=== PATIENT | male | born 1960 | race Caucasian/White ===

== ENCOUNTER 2016-09-01 15:58 | Emergency (ER) | payer OTHER ==
[~2016-09-01] VITALS: Ht 185.4 cm; Wt 122.4 kg
[2016-09-01 18:06] LABS: HEMATOCRIT 39.6 % (38.0-50.0); MCH 30.6 PG (29.0-34.0); MCHC 32.3 G/DL (30.0-36.0); MCV 94.7 FL (86-99); MEAN PLAT.VOLUME 10.8 uM^3 (9.0-12.4); PLATELET COUNT 160 K/uL (156-360); RBC DIS.WIDTH-CV 13.6 % (11.8-14.6); RBC DIS.WIDTH-SD 47.9 % (39-53); RED BLOOD COUNT 4.18 M/uL (4.00-5.50); WHITE BLOOD COUNT 6.2 K/uL (4.1-10.2)
[2016-09-01 18:21] LABS: CHLORIDE 109 mEq/L (99-109); POTASSIUM 5.5 mEq/L (3.7-5.4); SODIUM 139 mEq/L (136-147)
[2016-09-01 18:23] LABS: GLUCOSE 106 mg/dL (70-99)
[2016-09-01 18:24] LABS: ANION GAP 8 MEQ/L (2-14)
[2016-09-01 18:27] LABS: GFR ESTIMATE (CALCULATED) 51 mL/min/
[2016-09-01 18:28] LABS: UREA NITROGEN (BUN) 40 mg/dL (9-23)
[2016-09-01] MEDS ORDERED: CLEOCIN300 MG PO (19:14)
[2016-09-01] MEDS ORDERED: LORTAB 5-325 M1 EACH PO (19:55)
[2016-09-01 21:10] VITALS: BP 154/80
== END 2016-09-01 21:13 | disposition home or self-care (01) ==
LOC: EME 15:58 → EXP 15:58
PROVIDERS: Nurse Practitioner Family
DX: L03.116 Cellulitis of left lower limb (principal); R60.0 Localized edema; M79.605 Pain in left leg; S80.812D Abrasion, left lower leg, subsequent encounter; W26.9XXD Contact with unspecified sharp object(s), subsequent encounter; I48.91 Unspecified atrial fibrillation; Z95.2 Presence of prosthetic heart valve; Z79.01 Long term (current) use of anticoagulants
CPT/HCPCS: 73590; 80048; 85027; 87070; 87075; 87205; 93005; 93971; 99281; 99283